=== PATIENT | male | born 1960 | race Caucasian/White ===

== ENCOUNTER 2016-12-24 20:47 | Inpatient (IN) | payer MEDICAID ==
[~2016-12-24] VITALS: Ht 170.2 cm; Wt 75.2 kg
[2016-12-24] MEDS ORDERED: ONDANSETRON 4 MG INJ IV STA (21:31)
[2016-12-24] MEDS ORDERED: FAMOTIDINE 20 MG TAB PO STA (21:31)
[2016-12-24] MEDS ORDERED: BELLADONNA/PHENOBARBITAL TAB PO STA (21:31)
[2016-12-24] MEDS ORDERED: KETOROLAC 15 MG INJ IV STA (21:31)
[2016-12-24] MEDS ORDERED: LIDOCAINE/MYLANTA 40 ML BTL PO STA (21:31)
[2016-12-24 21:54] LABS: BASOPHILS % 0.4 % (0.0-2.0); EOSINOPHILS # 0.3 10^3/ul (0.0-0.5); EOSINOPHILS % 3.4 % (0.0-7.0); HEMATOCRIT 43.8 % (42.0-52.0); HEMOGLOBIN 14.1 g/dl (14.0-18.0); LYMPHOCYTES # 2.5 10^3/ul (0.8-2.9); LYMPHOCYTES % 32.3 % (15.0-51.0); MEAN CORPUSCULAR HEMOGLOBIN 26.7 pg (29.0-33.0); MEAN CORPUSCULAR HGB CONC 32.2 g/dl (32.0-37.0); MEAN CORPUSCULAR VOLUME 82.8 fl (82.0-101.0); MEAN PLATELET VOLUME 10.2 fl (7.4-10.4); MONOCYTE # 0.6 10^3/ul (0.3-0.9); MONOCYTES % 7.5 % (0.0-11.0); NEUTROPHIL # 4.3 10^3/ul (1.6-7.5); NEUTROPHILS % 56.1 % (39.0-77.0); PLATELET COUNT 165 10^3/UL (140-415); RED BLOOD COUNT 5.29 10^6/ul (4.70-6.10); RED CELL DISTRIBUTION WIDTH 15.5 % (11.5-14.5); WHITE BLOOD COUNT 7.6 10^3/ul (4.8-10.8)
[2016-12-24] MEDS ORDERED: ASPIRIN 81 MG TAB PO ONE (22:00)
[2016-12-24] MEDS ORDERED: NITROGLYCERIN (SL) 0.4 MG TAB SL ONE (22:00)
[2016-12-24] MEDS ORDERED: ENALAPRILAT 1.25 MG INJ IV ONE (22:00)
[2016-12-24 22:18] LABS: ALANINE AMINOTRANSFERASE 28 IU/L (13-69); ALBUMIN 4.3 g/dl (3.3-4.9); ALBUMIN/GLOBULIN RATIO 1.26; ALKALINE PHOSPHATASE 107 IU/L (42-121); ANION GAP 14 (8-16); ASPARTATE AMINO TRANSFERASE 20 IU/L (15-46); BILIRUBIN,INDIRECT 0.3 mg/dl (0-1.1); BILIRUBIN,TOTAL 0.3 mg/dl (0.2-1.3); BLOOD UREA NITROGEN 16 mg/dl (7-20); CALCIUM 9.4 mg/dl (8.4-10.2); CARBON DIOXIDE 29 mmol/L (21-31); CHLORIDE 102 mmol/L (97-110); GLUCOSE 93 mg/dl (70-220); SODIUM 142 mmol/L (135-144); TOTAL PROTEIN 7.7 g/dl (6.1-8.1)
--- NOTE | 2016-12-24 22:23 | ERD ---
ER Documentation Chief Complaint Chief Complaint biba for chest pressure since this am was given nitro x1 on the field HPI 56-year-old man brought in by EMS from home for complaints of pressure-like substernal left-sided chest pain beginning today, constant, nonradiating, but exertional. He also has associated intermittent shortness of breath. He is a smoker and has a long history of hypertension but does not use antihypertensive medications. Patient denies loss of consciousness, no fevers or chills, no vomiting or diarrhea. Patient also describes epigastric pain and burning, but this is separate from his chest discomfort. Patient has no history of coronary angiography. ROS All systems reviewed and are negative except as per history of present illness. PMhx/Soc Hypertension, tobacco smoker Medical and Surgical Hx: pt denies Surgical Hx History of Surgery: No Anesthesia Reaction: No Hx Neurological Disorder: No Hx Respiratory Disorders: No Hx Cardiac Disorders: Yes (htn ) Hx Psychiatric Problems: No Hx Miscellaneous Medical Probl: No Hx Alcohol Use: Yes Hx Substance Use: No Hx Tobacco Use: Yes Smoking Status: Current every day smoker FmHx Family History: No diabetes Physical Exam Vitals Vital Signs Date Time Temp Pulse Resp B/P Pulse Ox O2 Delivery O2 Flow Rate FiO2 12/24/16 20:53 98.5 75 18 186/97 96 Physical Exam GENERAL: Well-developed, well-nourished, well-hydrated, in no apparent distress , looks nontoxic in appearance HEENT: Moist mucous membranes, pink conjunctiva, no cervical spine tenderness or step-off deformities, no goiter, no jaundice or icterus, extraocular movements intact without pain. No submandibular induration, and no pharyngeal erythema NEURO: Alert and oriented 3, cranial nerves II through XII intact bilaterally, pupils equal round reactive to light, no focal deficits or facial asymmetry, sensation intact distally Strength 5/5 in upper and lower extremities bilaterally CARDIAC: Regular rate and rhythm, no murmurs rubs or gallops LUNGS: Clear bilaterally no wheezing crackles or stridor ABDOMEN: Soft nontender, no guarding, no rigidity, no rebound, no psoas sign no obturator sign. Normoactive bowel sounds SKIN: Warm and dry to touch, no abrasions, contusions, or hematomas, no lacerations, no ecchymosis, no target lesions, and without ulcers EXTREMITIES: No clubbing cyanosis or edema, calves are bilaterally symmetrical, no Homans sign, no popliteal cord sign. Distal pulses equal and bilateral PSYCH: Normal affect without agitation or irritability Result Diagram: 12/24/162130 Results 24 hrs Laboratory Tests Test 12/24/16 21:31 White Blood Count 7.610^3/ul Red Blood Count 5.2910^6/ul Hemoglobin 14.1g/dl Hematocrit 43.8% Mean Corpuscular Volume 82.8fl Mean Corpuscular Hemoglobin 26.7pg Mean Corpuscular Hemoglobin Concent 32.2g/dl Red Cell Distribution Width 15.5% Platelet Count 50223^3/UL Mean Platelet Volume 10.2fl Neutrophils % 56.1% Lymphocytes % 32.3% Monocytes % 7.5% Eosinophils % 3.4% Basophils % 0.4% Nucleated Red Blood Cells % 0.0/100WBC Neutrophils # 4.310^3/ul Lymphocytes # 2.510^3/ul Monocytes # 0.610^3/ul Eosinophils # 0.310^3/ul Basophils # 0.010^3/ul Nucleated Red Blood Cells # 0.010^3/ul Current Medications Medications (Trade) Dose Ordered Sig/Олег Route PRN Reason Start Time Stop Time Status Last Admin Dose Admin Ondansetron HCl (Zofran Inj) 4 mg ONCE STAT IV 12/24/16 21:31 12/24/16 21:32 DC 12/24/16 21:39 Famotidine (Pepcid) 40 mg ONCE STAT PO 12/24/16 21:31 12/24/16 21:32 DC 12/24/16 21:36 Miscellaneous Medication (Gi Cocktail (2)) 40 ml ONCE STAT PO 12/24/16 21:31 12/24/16 21:32 DC 12/24/16 21:35 Belladonna/ Phenobarbital () 2 tab ONCE STAT PO 12/24/16 21:31 12/24/16 21:32 DC 12/24/16 21:35 Ketorolac Tromethamine (Toradol) 15 mg ONCE STAT IV 12/24/16 21:31 12/24/16 21:32 DC 12/24/16 21:35 Enalaprilat (Vasotec Iv) 1.25 mg ONCE ONCE IV 12/24/16 22:00 12/24/16 22:01 DC 12/24/16 22:06 Nitroglycerin (Nitroglycerin (Sl Tab) 0.4 Mg) 1 tab ONCE ONCE SL 12/24/16 22:00 12/24/16 22:01 DC 12/24/16 22:06 Aspirin (Aspirin) 324 mg ONCE ONCE PO 12/24/16 22:00 12/24/16 22:01 DC 12/24/16 22:06 Procedures/MDM IV line was established 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 Patient was afebrile EKG performed, read by me: 69 bpm, normal sinus rhythm, normal axis, no acute ST segment changes, narrow QRS complex, with good R-wave progression in precordial leads. One AP view of the chest performed, read by me reveals no acute infiltrates, normal mediastinum, sharp costophrenic and cardiac borders, no air under the diaphragm. Otherwise unremarkable chest x-ray. CBC and electrolytes are normal, liver function tests were normal, troponin was negative. I administered aspirin 324 mg p.o. for cardioprotective measures, nitro hypertension. Patient also receives a GI cocktail 50 cc p.o., famotidine 40 mg p.o. and Toradol 15 mg IV 1. Patient has concerning past medical history and uncontrolled hypertension. He suffered chest pain today and will be admitted to telemetry setting for continued medical management cardiology consultation. Departure Diagnosis: Primary Impression: Chest pain Chest pain type: unspecified Qualified Code: R07.9 - Chest pain, unspecified type Additional Impression: Hypertension Hypertension type: essential hypertension Qualified Code: I10 - Essential hypertension Condition: LACI Swenson MD Dec 24, 2016 22:23
[2016-12-24 22:35] LABS: POTASSIUM 2.9 mmol/L (3.5-5.1); TROPONIN-I < 0.012 ng/ml (0.00-0.12)
--- NOTE | 2016-12-24 22:51 | RADRPT ---
PROCEDURE: XR Chest. CLINICAL INDICATION: Abdominal pain. TECHNIQUE: Single frontal view of the chest was obtained in apical lordotic position. COMPARISON: None. FINDINGS: Heart size is at upper limits of normal. The lungs are clear. No signs of pleural fluid or pneumotho rax are seen. The osseous structures and soft tissues are unremarkable. IMPRESSION: No evidence for active cardiopulmonary disease. RPTAT: [facility] Physician Aston Date Time Electronically viewed and signed by Physician Aston on 12/24/2016 22:51 RS/
[2016-12-24] MEDS ORDERED: POTASSIUM CHLORIDE (SR) 20 MEQ TAB PO STA (22:55)
[2016-12-24] MEDS ORDERED: NITROGLYCERIN (SL) 0.4 MG TAB SL PRN (23:00)
[2016-12-24] MEDS: METOPROLOL 25 MG TAB PO SCH (23:00)
[2016-12-24] MEDS ORDERED: ONDANSETRON 4 MG INJ IV PRN (23:00)
[2016-12-24] MEDS ORDERED: ALBUTEROL/IPRATROPIUM (NEB) 3 ML AMP HHN PRN (23:00)
[2016-12-24] MEDS ORDERED: NACL 0.9% 3 ML SYG IV SCH (23:00)
[2016-12-24] MEDS ORDERED: ACETAMINOPHEN 325 MG TAB PO PRN (23:00)
[2016-12-24] MEDS ORDERED: morphine 2 MG INJ IV PRN (23:00)
[2016-12-25] VITALS (11 sets, daily range): BP systolic 139–154; BP diastolic 82–92; PULSE 62–72; RESP 16–22; Ht 170.2 cm; Wt 75.2 kg
[2016-12-25 00:27] LABS: CREATINE KINASE 108 IU/L (23-200)
[2016-12-25 01:08] LABS: CK-MB 0.77 ng/ml (0.0-2.4); TROPONIN-I < 0.012 ng/ml (0.00-0.12)
[2016-12-25] MEDS: POTASSIUM CHLORIDE 250 ML IVPB SCH ×2 (01:30→08:37)
[2016-12-25] MEDS ORDERED: POTASSIUM CHLORIDE (SR) 20 MEQ TAB PO SCH (03:00)
[2016-12-25] MEDS ORDERED: hydrALAzine 20 MG INJ IV PRN (06:00)
[2016-12-25 06:06] LABS: BASOPHILS % 0.6 % (0.0-2.0); EOSINOPHILS # 0.2 10^3/ul (0.0-0.5); EOSINOPHILS % 3.2 % (0.0-7.0); HEMOGLOBIN 13.6 g/dl (14.0-18.0); LYMPHOCYTES # 2.4 10^3/ul (0.8-2.9); MEAN CORPUSCULAR HEMOGLOBIN 27.6 pg (29.0-33.0); MEAN CORPUSCULAR HGB CONC 33.2 g/dl (32.0-37.0); MEAN CORPUSCULAR VOLUME 83.2 fl (82.0-101.0); MONOCYTE # 0.5 10^3/ul (0.3-0.9); MONOCYTES % 7.6 % (0.0-11.0); NEUTROPHILS % 55.3 % (39.0-77.0); PLATELET COUNT 157 10^3/UL (140-415); RED BLOOD COUNT 4.93 10^6/ul (4.70-6.10); RED CELL DISTRIBUTION WIDTH 15.1 % (11.5-14.5); WHITE BLOOD COUNT 7.2 10^3/ul (4.8-10.8)
[2016-12-25 06:27] LABS: CREATINE KINASE 88 IU/L (23-200)
[2016-12-25 06:34] LABS: ALBUMIN 3.8 g/dl (3.3-4.9); ALBUMIN/GLOBULIN RATIO 1.4; BILIRUBIN,INDIRECT 0.2 mg/dl (0-1.1); BILIRUBIN,TOTAL 0.2 mg/dl (0.2-1.3); CALCIUM 9.1 mg/dl (8.4-10.2); CREATININE 1.01 mg/dl (0.61-1.24); POTASSIUM 3.4 mmol/L (3.5-5.1); TOTAL PROTEIN 6.5 g/dl (6.1-8.1)
[2016-12-25 06:48] LABS: CK-MB 0.62 ng/ml (0.0-2.4); TROPONIN-I < 0.012 ng/ml (0.00-0.12)
[2016-12-25 07:36] LABS: THYROID STIMULATING HORMONE 3.51 MIU/L (0.465-4.680)
[2016-12-25] MEDS: ASPIRIN 81 MG TAB PO SCH (08:37)
[2016-12-25] MEDS: METOPROLOL 25 MG TAB PO SCH (08:38)
[2016-12-25] MEDS: ENOXAPARIN 40 MG/0.4 ML SYG SC SCH (08:40)
--- NOTE | 2016-12-25 09:08 | HP ---
Date/Time of Note Date/Time of Note DATE: 12/25/16 TIME: 09:04 Assessment/Plan VTE Prophylaxis VTE Prophylaxis Intervention: heparin Assessment/Plan Assessment/Plan 1. Chest pain, rule out ACS -Continue telemetry monitoring -Supplemental oxygen, aspirin, beta-ashley with as needed nitro morphine -2D echo and cardiology consult 2. Hypertension -Continue antihypertensives adjustment as needed 3. Hypokalemia -Replete HPI/ROS Admit Date/Time Admit Date/Time Dec 24, 2016 at 22:18 Hx of Present Illness This is a 57-year-old male with a history of hypertension who presented to the emergency department complaining of chest pain times few days. Pain is slightly left-sided with radiation of the left arm. When EMS arrived, he was given aspirin and nitroglycerin with resolution of his chest pain. When he presented to the ER, blood pressure was 186/97 with a heart rate of 75. Labs shows potassium of 2.9. EKG was normal sinus rhythm with a heart rate of 69 and a troponin so far negative 2. Chest x-ray was no acute findings. PMH/Family/Social Social History Smoking Status: Current every day smoker Exam/Review of Systems Vital Signs Vitals Vital Signs Date Time Temp Pulse Resp B/P Pulse Ox O2 Delivery O2 Flow Rate FiO2 12/25/16 08:31 65 12/25/16 06:39 98.0 16 146/92 12/24/16 20:53 96 Exam Constitutional: alert, oriented, well developed Head: atraumatic, normocephalic Eyes: EOMI, PERRL Respiratory: clear to auscultation, normal air movement Cardiovascular: nl pulses, regular rate and rhythm Gastrointestinal: non-tender, soft Extremities: normal pulses Labs Result Diagram: 12/25/16 0545 12/25/16 0545 Medications Medications Current Medications Ondansetron HCl (Zofran Inj) 4 mg Q6H PRN IV NAUSEA AND/OR VOMITING; Start at 23:00 Aspirin (Aspirin) 81 mg DAILY PO Last administered on 12/25/16t 08:37; Admin Dose 81 MG; Start 12/25/16 at 09:00 Nitroglycerin (Nitroglycerin (Sl Tab) 0.4 Mg) 1 tab Q5M PRN SL CHEST PAIN; Start 12/24/16 at 23:00 Acetaminophen (Tylenol Tab) 650 mg Q6H PRN PO PAIN LEVEL 1-3 OR FEVER; Start 12/24/16 at 23:00 Morphine Sulfate (morphine) 2 mg Q4H PRN IV pain Last administered on 03:51; Admin Dose 2 MG; Start 12/24/16 at 23:00 Enoxaparin Sodium (Lovenox) 40 mg DAILY SC Last administered on 12/25/16 08: 40; Admin Dose 40 MG; Start 12/25/16 at 09:00 Metoprolol Tartrate 25 mg 25 mg Q12 PO Last administered on 12/25/16 08:38; Admin Dose 25 MG; Start 12/24/16 at 23:00 Potassium Chloride (KCl 40 MEQ/250 ML NS) 250 ml @ 62.5 mls/hr Q4H IVPB Last administered on 12/25/16 08:37; Admin Dose 62.5 MLS/HR; Start 12/25/16 at 01: 30; Stop 12/25/16 at 09:29 Hydralazine HCl (Apresoline) 10 mg Q4H PRN IV SBP > 160; Start 12/25/16 at 06: 00 KOBE PHIPPS MD Dec 25, 2016 09:08
[2016-12-25] MEDS ORDERED: POTASSIUM CHLORIDE (SR) 20 MEQ TAB PO STA (10:51)
--- NOTE | 2016-12-25 11:08 | PN ---
Date/Time of Note Date/Time of Note DATE: 12/25/16 TIME: 11:05 Assessment/Plan VTE Prophylaxis VTE Prophylaxis Intervention: LMWH Assessment/Plan Chief Complaint/Hosp Course Assessment/Plan: 56-year-old male positive smoking history, presents with: 1. Chest pain -troponins are negative 3, 2D echocardiogram is pending. -Continue telemetry monitoring -Supplemental oxygen, aspirin, beta-ashley with as needed nitro morphine [id number] echo and cardiology consult recommendations 2. Hypertension-came in with hypertensive urgency, now improved -Continue antihypertensives adjustment as needed 3. Hypokalemia -Replete 4. Left arm numbness, will check head CT, otherwise patient has no other focal deficits. Problems: Subjective 24 Hr Interval Summary Free Text/Dictation Patient having some left hand numbness, but denies chest pain presently. Exam/Review of Systems Vital Signs Vitals Vital Signs Date Time Temp Pulse Resp B/P Pulse Ox O2 Delivery O2 Flow Rate FiO2 12/25/16 08:31 65 12/25/16 06:39 98.0 16 146/92 12/24/16 20:53 96 Exam Constitutional: alert, oriented, well developed Head: atraumatic, normocephalic Eyes: EOMI, PERRL Respiratory: clear to auscultation, normal air movement Cardiovascular: nl pulses, regular rate and rhythm Gastrointestinal: non-tender, soft Extremities: normal pulses Results Result Diagram: 12/25/16 0545 12/25/16 0545 Results 24 hrs Laboratory Tests Test 12/24/16 21:31 12/24/16 23:51 12/25/16 04:55 12/25/16 05:45 White Blood Count 7.6 7.2 Red Blood Count 5.29 4.93 Hemoglobin 14.1 13.6 L Hematocrit 43.8 41.0 L Mean Corpuscular Volume 82.8 83.2 Mean Corpuscular Hemoglobin 26.7 L 27.6 L Mean Corpuscular Hemoglobin Concent 32.2 33.2 Red Cell Distribution Width 15.5 H 15.1 H Platelet Count 165 157 Mean Platelet Volume 10.2 10.0 Neutrophils % 56.1 55.3 Lymphocytes % 32.3 33.0 Monocytes % 7.5 7.6 Eosinophils % 3.4 3.2 Basophils % 0.4 0.6 Nucleated Red Blood Cells % 0.0 0.0 Neutrophils # 4.3 4.0 Lymphocytes # 2.5 2.4 Monocytes # 0.6 0.5 Eosinophils # 0.3 0.2 Basophils # 0.0 0.0 Nucleated Red Blood Cells # 0.0 0.0 Sodium Level 142 145 H Potassium Level 2.9 *L 3.4 L Chloride Level 102 105 Carbon Dioxide Level 29 32 H Anion Gap 14 11 Blood Urea Nitrogen 16 18 Creatinine 0.80 1.01 Glucose Level 93 93 Calcium Level 9.4 9.1 Total Bilirubin 0.3 0.2 Direct Bilirubin 0.00 0.00 Indirect Bilirubin 0.3 0.2 Aspartate Amino Transf (AST/SGOT) 20 16 Alanine Aminotransferase (ALT/SGPT) 28 28 Alkaline Phosphatase 107 86 Troponin I < 0.012 < 0.012 < 0.012 Total Protein 7.7 6.5 # Albumin 4.3 3.8 Globulin 3.40 H 2.70 Albumin/Globulin Ratio 1.26 1.40 Lipase 73 Creatine Kinase 108 88 Creatine Kinase Index 0.7 0.7 Creatinine Kinase MB (Mass) 0.77 0.62 Hemoglobin A1c 5.7 Magnesium Level 2.0 Triglycerides Level 236 H Cholesterol Level 212 H LDL Cholesterol, Calculated 135 HDL Cholesterol 30 Cholesterol/HDL Ratio 7.0 Thyroid Stimulating Hormone (TSH) 3.510 Medications Medications Current Medications Ondansetron HCl (Zofran Inj) 4 mg Q6H PRN IV NAUSEA AND/OR VOMITING; Start at 23:00 Aspirin (Aspirin) 81 mg DAILY PO Last administered on 12/25/16 08:37; Admin Dose 81 MG; Start 12/25/16 at 09:00 Nitroglycerin (Nitroglycerin (Sl Tab) 0.4 Mg) 1 tab Q5M PRN SL CHEST PAIN; Start 12/24/16 at 23:00 Acetaminophen (Tylenol Tab) 650 mg Q6H PRN PO PAIN LEVEL 1-3 OR FEVER; Start 12/24/16 at 23:00 Morphine Sulfate (morphine) 2 mg Q4H PRN IV pain Last administered on 03:51; Admin Dose 2 MG; Start 12/24/16 at 23:00 Enoxaparin Sodium (Lovenox) 40 mg DAILY SC Last administered on 12/25/16 08: 40; Admin Dose 40 MG; Start 12/25/16 at 09:00 Metoprolol Tartrate (Lopressor) 25 mg Q12 PO Last administered on 12/25/16t 08 :38; Admin Dose 25 MG; Start 12/24/16 at 23:00 Hydralazine HCl (Apresoline) 10 mg Q4H PRN IV SBP > 160; Start 12/25/16 at 06: 00 Fenofibrate (Tricor) 48 mg DAILY PO ; Start 12/25/16 at 11:00; Status QASIM SCHULTZ Dec 25, 2016 11:08
--- NOTE | 2016-12-25 12:07 | RADRPT ---
PROCEDURE: CT Brain without contrast. CLINICAL INDICATION: Left arm numbness. TECHNIQUE: A CT of the brain was performed on multidetector high-resolution CT scanner utilizing a xial sections from the skull base through the vertex without contrast. The scan was reviewed in sof t tissue brain and high frequency resolution bone algorithm windows. Images were reviewed on a high -resolution PACS workstation. One or more the following does reduction techniques were utilized: Aut omated exposure control, adjustment of the mA/ or kV according to patient's size, or use of iterativ e reconstruction technique. The exam CTDI = 51.28 mGy and the DLP = 630.20 mGy-cm. COMPARISON: None available. FINDINGS: The ventricles and sulci are age-appropriate. There is no intracranial hemorrhage, mass effect or mi dline shift. No abnormal intra-axial or extra-axial fluid collections are seen. The smith/white kylee er differentiation is preserved. There are minimal scattered foci of hypoattenuation in the white matter, which are nonspecific in et iology but likely reflect chronic small vessel ischemic changes. There are minimal intracranial vas cular calcifications consistent with atherosclerosis. The visualized paranasal sinuses demonstrate o pacification of left frontoethmoidal recess and subtotal opacification of left sphenoid sinus and bi lateral ethmoid air cells with associated mucoid secretion/fluid level. The mastoid air cells are es sentially clear. IMPRESSION: 1. No acute intracranial hemorrhage, transcortical infarction or mass effect. If clinical concern p ersists consider brain MRI. 2. Minimal intracranial atherosclerosis and chronic small vessel ischemic changes. 3. Opacification of left frontoethmoidal recess and subtotal opacification of left sphenoid sinus a nd bilateral ethmoid air cells with associated mucoid secretion/fluid level, correlate for acute sin usitis. RPTAT: JJ .Fartun Sheriff MD, MD Date Time Electronically viewed and signed by .Fartun Sheriff MD, MD on 12/25/2016 12:07 .N/
[2016-12-25] MEDS: FENOFIBRATE 48 MG TAB PO SCH (12:21)
--- NOTE | 2016-12-25 17:01 | CONS ---
Date/Time of Note Date/Time of Note DATE: 12/25/16 TIME: 17:00 Assessment/Plan Assessment/Plan Chief Complaint/Hosp Course Assessment: Chest pain - ruled out for myocardial infarction, possibly due to severely elevated blood pressures Accelerated hypertension - blood pressures now improved Dyslipidemia Recommendations: -follow up transthoracic echocardiogram, recommend outpatient cardiac stress testing if echocardiogram normal -change metoprolol to carvedilol 6.25mg BID -continue aspirin 81mg daily -add atorvastatin 10mg daily, continue fenofibrate 48mg daily Problems: Consultation Date/Type/Reason Admit Date/Time Dec 24, 2016 at 22:18 Type of Consultation: Cardiology Reason for Consultation chest pain Hx of Present Illness The patient is a 56 year-old male who presented with chest pain. He describes a one day history of intermittent nonexertional chest pressure with radiation down the left arm. He reports elevated blood pressures at home with systolic pressures above 200. On presentation to the emergency department, his blood pressures was 186/97. EKG showed normal sinus rhythm without acute ischemic changes. Troponins have been negative x 3. 14 point review of systems negative other than per HPI. Past Medical History Medical History: hypertension Past Surgical History Past Surgical Hx: cholecystectomy Family History Significant Family History: no pertinent family hx Social History Alcohol Use: occasionally Smoking Status: Current every day smoker Drug Use: none Exam/Review of Systems Vital Signs Vitals Vital Signs Date Time Temp Pulse Resp B/P Pulse Ox O2 Delivery O2 Flow Rate FiO2 12/25/16 15:13 98.0 67 18 141/82 96 Exam Constitutional: alert, well developed Psych: nl mood/affect, no complaints Head: atraumatic, normocephalic Eyes: nl conjunctiva, nl lids ENMT: nl external ears & nose, nl nasal mucosa & septum Neck: non-tender, supple, No jvd Respiratory: clear to auscultation, normal air movement Cardiovascular: regular rate and rhythm Gastrointestinal: non-tender, soft Musculoskeletal: nl extremities to inspection Extremities: No clubbing, No cyanosis, No edema Neurological: nl mental status, nl speech Skin: nl turgor Results Result Diagram: 12/25/16 0545 12/25/16 0545 Results 24 hrs Laboratory Tests Test 12/24/16 21:31 12/24/16 23:51 12/25/16 04:55 12/25/16 05:45 White Blood Count 7.6 7.2 Red Blood Count 5.29 4.93 Hemoglobin 14.1 13.6 L Hematocrit 43.8 41.0 L Mean Corpuscular Volume 82.8 83.2 Mean Corpuscular Hemoglobin 26.7 L 27.6 L Mean Corpuscular Hemoglobin Concent 32.2 33.2 Red Cell Distribution Width 15.5 H 15.1 H Platelet Count 165 157 Mean Platelet Volume 10.2 10.0 Neutrophils % 56.1 55.3 Lymphocytes % 32.3 33.0 Monocytes % 7.5 7.6 Eosinophils % 3.4 3.2 Basophils % 0.4 0.6 Nucleated Red Blood Cells % 0.0 0.0 Neutrophils # 4.3 4.0 Lymphocytes # 2.5 2.4 Monocytes # 0.6 0.5 Eosinophils # 0.3 0.2 Basophils # 0.0 0.0 Nucleated Red Blood Cells # 0.0 0.0 Sodium Level 142 145 H Potassium Level 2.9 *L 3.4 L Chloride Level 102 105 Carbon Dioxide Level 29 32 H Anion Gap 14 11 Blood Urea Nitrogen 16 18 Creatinine 0.80 1.01 Glucose Level 93 93 Calcium Level 9.4 9.1 Total Bilirubin 0.3 0.2 Direct Bilirubin 0.00 0.00 Indirect Bilirubin 0.3 0.2 Aspartate Amino Transf (AST/SGOT) 20 16 Alanine Aminotransferase (ALT/SGPT) 28 28 Alkaline Phosphatase 107 86 Troponin I < 0.012 < 0.012 < 0.012 Total Protein 7.7 6.5 # Albumin 4.3 3.8 Globulin 3.40 H 2.70 Albumin/Globulin Ratio 1.26 1.40 Lipase 73 Creatine Kinase 108 88 Creatine Kinase Index 0.7 0.7 Creatinine Kinase MB (Mass) 0.77 0.62 Hemoglobin A1c 5.7 Magnesium Level 2.0 Triglycerides Level 236 H Cholesterol Level 212 H LDL Cholesterol, Calculated 135 HDL Cholesterol 30 Cholesterol/HDL Ratio 7.0 Thyroid Stimulating Hormone (TSH) 3.510 Medications Medications Current Medications Ondansetron HCl (Zofran Inj) 4 mg Q6H PRN IV NAUSEA AND/OR VOMITING; Start at 23:00 Aspirin (Aspirin) 81 mg DAILY PO Last administered on 12/25/16t 08:37; Admin Dose 81 MG; Start 12/25/16 at 09:00 Nitroglycerin (Nitroglycerin (Sl Tab) 0.4 Mg) 1 tab Q5M PRN SL CHEST PAIN; Start 12/24/16 at 23:00 Acetaminophen (Tylenol Tab) 650 mg Q6H PRN PO PAIN LEVEL 1-3 OR FEVER; Start 12/24/16 at 23:00 Morphine Sulfate (morphine) 2 mg Q4H PRN IV pain Last administered on 03:51; Admin Dose 2 MG; Start 12/24/16 at 23:00 Enoxaparin Sodium (Lovenox) 40 mg DAILY SC Last administered on 12/25/16 08: 40; Admin Dose 40 MG; Start 12/25/16 at 09:00 Metoprolol Tartrate (Lopressor) 25 mg Q12 PO Last administered on 12/25/16 08 :38; Admin Dose 25 MG; Start 12/24/16 at 23:00 Hydralazine HCl (Apresoline) 10 mg Q4H PRN IV SBP > 160; Start 12/25/16 at 06: 00 Fenofibrate (Tricor) 48 mg DAILY PO Last administered on 12/25/16 12:21; Admin Dose 48 MG; Start 12/25/16 at 12:00 MAXIMO PARK MD Dec 25, 2016 17:01
[2016-12-25] MEDS: ATORVASTATIN 10 MG TAB PO SCH (20:44)
[2016-12-26] VITALS (12 sets, daily range): BP systolic 134–154; BP diastolic 80–95; PULSE 61–69; RESP 17–20
--- NOTE | 2016-12-26 00:08 | RADRPT ---
Echocardiogram Report Patient Name: VIKAS DELATORRE Gender: Male Date: 1960 Study Date: 25-Dec-2016 [employer] Concrete: [facility] Location: [address] Ref. Physician: QASIM AUSTIN Quality: Adequate Procedures: Transthoracic echocardiogram with complete 2D, M-Mode, and doppler examination. Indications: Chest Pain. 2D/M Mode Doppler Measurement Value Normal Ranges Measurement Value Normal Ranges LVIDd 2D 5.0 3.5 - 5.6 cm AV Peak Kyler 1.1 m/sec LVIDs 2D 4.0 2.1 - 4.1 cm AV Peak PG 5.0 mmHg FS 2D 21.0 % AI Peak PG 42.0 mmHg LVPWd 2D 1.3 0.6 - 1.1 cm AI Peak Kyler 3.2 m/sec IVSd 2D 1.3 0.6 - 1.1 cm AI PHT 536.0 msec IVS/LVPW 2D 1.0 LVOT Peak Kyler 1.0 m/sec AoR Diam 2D 2.8 2.0 - 3.7 cm LVOT Peak PG 4.0 mmHg LA/Ao 2D 2 0 - 1 MV E Peak Kyler 0.7 m/sec EDV 2D 126.0 cm3 MV A Peak Kyler 0.7 m/sec ESV 2D 62.1 cm3 MV E/A 0.9 LA Dimen 2D 4.3 2.3 - 4.0 cm MV Decel Time 165 msec MV E/A 0.9 TR Peak Kyler 2.5 m/sec TR Peak PG 25.0 mmHg RVSP 28.0 mmHg Findings Left Ventricle: Normal left ventricular cavity size. Mild concentric left ventricular hypertrophy. Mild global left ventricular systolic dysfunction. Ejection fraction is visually estimated at 4550 %. Tissue Doppler/Mitral Doppler indices are consistent with pseudonormalization with mildly elevated left atrial pressure (Stage II diastolic dysfunction). These segments of the LV are hypokinetic inferolateral base and inferolateral mid segment. Right Ventricle: Normal right ventricular size. Normal right ventricular systolic function. Left Atrium: There is mild enlargement of left atrium. Right Atrium: The right atrium is normal in size. Mitral Valve: Mild mitral leaflet calcification. Mild mitral annular calcification. Mild mitral valve regurgitation. Aortic Valve: Aortic cusps appear mildly calcified. Mild to moderate aortic valve regurgitation. Tricuspid Valve: Normal appearance of the tricuspid valve. Estimated peak PA systolic pressure 28 mmHg. There is mild tricuspid regurgitation. Pulmonic Valve: Pulmonic valve not well visualized. There is trace pulmonic regurgitation. Pericardium: Normal pericardium with no significant pericardial effusion. Aorta: Normal aortic root. IVC: Normal size and normal respiratory collapse consistent with normal right atrial pressure. Conclusions 1.The left ventricle is normal in size with mildly reduced systolic function. 2.Estimated left ventricular ejection fraction of 45-50%. There is mild inferolateral hypokinesis. 3.Mild concentric left ventricular hypertrophy. Grade 2 diastolic dysfunction. 4.Aortic valve sclerosis without stenosis. Mild to moderate aortic regurgitation. 5.Mild left atrial enlargement. Electronically Signed By: Mau Blake 26-Dec-2016 00:07:58 -0700 Patient Name: VIKAS DELATORRE Study Date: 25-Dec-2016 [id number]
[2016-12-26 07:24] LABS: BASOPHILS % 0.3 % (0.0-2.0); EOSINOPHILS # 0.2 10^3/ul (0.0-0.5); EOSINOPHILS % 2.7 % (0.0-7.0); HEMATOCRIT 41.8 % (42.0-52.0); HEMOGLOBIN 13.3 g/dl (14.0-18.0); LYMPHOCYTES # 2.2 10^3/ul (0.8-2.9); LYMPHOCYTES % 34.2 % (15.0-51.0); MEAN CORPUSCULAR HGB CONC 31.8 g/dl (32.0-37.0); MEAN PLATELET VOLUME 10.3 fl (7.4-10.4); MONOCYTE # 0.4 10^3/ul (0.3-0.9); MONOCYTES % 6.5 % (0.0-11.0); NEUTROPHIL # 3.5 10^3/ul (1.6-7.5); NEUTROPHILS % 56.1 % (39.0-77.0); PLATELET COUNT 156 10^3/UL (140-415); RED BLOOD COUNT 4.92 10^6/ul (4.70-6.10); RED CELL DISTRIBUTION WIDTH 15.1 % (11.5-14.5); WHITE BLOOD COUNT 6.3 10^3/ul (4.8-10.8)
[2016-12-26 07:42] LABS: CALCIUM 9.2 mg/dl (8.4-10.2); CREATININE 0.86 mg/dl (0.61-1.24); POTASSIUM 3.9 mmol/L (3.5-5.1)
[2016-12-26] MEDS: ASPIRIN 81 MG TAB PO SCH (09:41)
[2016-12-26] MEDS: FENOFIBRATE 48 MG TAB PO SCH (09:42)
[2016-12-26] MEDS: ENOXAPARIN 40 MG/0.4 ML SYG SC SCH (09:56)
[2016-12-26] MEDS ORDERED: INFLUENZA VIRUS VACCINE 0.5 ML SYG IM* ONE (10:00)
--- NOTE | 2016-12-26 10:17 | PN ---
Date/Time of Note Date/Time of Note DATE: 12/26/16 TIME: 10:15 Assessment/Plan VTE Prophylaxis VTE Prophylaxis Intervention: LMWH Lines/Catheters IV Catheter Type (from Nrs): Peripheral IV Assessment/Plan Chief Complaint/Hosp Course Assessment/Plan: 56-year-old male positive smoking history, presents with: 1. Chest pain -troponins are negative 3 -Continue telemetry monitoring -Supplemental oxygen, aspirin, beta-ashley with as needed nitro morphine -May get cardiac stress test depending on echocardiogram results per cardiology consult recommendations 2. Hypertension-came in with hypertensive urgency, now improved -Continue antihypertensives adjustment as needed 3. Hypokalemia -Replete 4. Left arm numbness, will check head CT, otherwise patient has no other focal deficits. Problems: Subjective 24 Hr Interval Summary Free Text/Dictation No acute events overnight, seen by cardiology team yesterday. Echocardiogram performed as well. Exam/Review of Systems Vital Signs Vitals Vital Signs Date Time Temp Pulse Resp B/P Pulse Ox O2 Delivery O2 Flow Rate FiO2 12/26/16 08:41 68 12/26/16 07:53 98.7 17 154/89 96 Intake and Output 12/25/16 12/25/16 12/26/16 14:59 22:59 06:59 Intake Total 300 ml 250 ml Balance 300 ml 250 ml Exam Constitutional: alert, oriented, well developed Head: atraumatic, normocephalic Eyes: EOMI, PERRL Respiratory: clear to auscultation, normal air movement Cardiovascular: nl pulses, regular rate and rhythm Gastrointestinal: non-tender, soft Extremities: normal pulses Results Result Diagram: 12/26/16 0627 12/26/16 0634 Results 24 hrs Laboratory Tests Test 12/26/16 06:27 12/26/16 06:34 White Blood Count 6.3 Red Blood Count 4.92 Hemoglobin 13.3 L Hematocrit 41.8 L Mean Corpuscular Volume 85.0 Mean Corpuscular Hemoglobin 27.0 L Mean Corpuscular Hemoglobin Concent 31.8 L Red Cell Distribution Width 15.1 H Platelet Count 156 Mean Platelet Volume 10.3 Neutrophils % 56.1 Lymphocytes % 34.2 Monocytes % 6.5 Eosinophils % 2.7 Basophils % 0.3 Nucleated Red Blood Cells % 0.0 Neutrophils # 3.5 Lymphocytes # 2.2 Monocytes # 0.4 Eosinophils # 0.2 Basophils # 0.0 Nucleated Red Blood Cells # 0.0 Sodium Level 146 H Potassium Level 3.9 Chloride Level 108 Carbon Dioxide Level 30 Anion Gap 12 Blood Urea Nitrogen 20 Creatinine 0.86 Glucose Level 106 Calcium Level 9.2 Medications Medications Current Medications Ondansetron HCl (Zofran Inj) 4 mg Q6H PRN IV NAUSEA AND/OR VOMITING; Start at 23:00 Aspirin (Aspirin) 81 mg DAILY PO Last administered on 12/26/16 09:41; Admin Dose 81 MG; Start 12/25/16 at 09:00 Nitroglycerin (Nitroglycerin (Sl Tab) 0.4 Mg) 1 tab Q5M PRN SL CHEST PAIN; Start 12/24/16 at 23:00 Acetaminophen (Tylenol Tab) 650 mg Q6H PRN PO PAIN LEVEL 1-3 OR FEVER; Start 12/24/16 at 23:00 Morphine Sulfate (morphine) 2 mg Q4H PRN IV pain Last administered on 03:51; Admin Dose 2 MG; Start 12/24/16 at 23:00 Enoxaparin Sodium (Lovenox) 40 mg DAILY SC Last administered on 12/26/16 09: 56; Admin Dose 40 MG; Start 12/25/16 at 09:00 Hydralazine HCl (Apresoline) 10 mg Q4H PRN IV SBP > 160; Start 12/25/16 at 06: 00 Fenofibrate (Tricor) 48 mg DAILY PO Last administered on 12/26/16 09:42; Admin Dose 48 MG; Start 12/25/16 at 12:00 Atorvastatin Calcium (Lipitor) 10 mg HS PO Last administered on 12/25/16 20: 44; Admin Dose 10 MG; Start 12/25/16 at 21:00 Carvedilol (Coreg) 6.25 mg BID PO Last administered on 12/26/16 09:42; Admin Dose 6.25 MG; Start 12/25/16 at 21:00 Procedures Procedures 2D ECHO: Conclusions 1. The left ventricle is normal in size with mildly reduced systolic function. 2. Estimated left ventricular ejection fraction of 45-50%. There is mild inferolateral hypokinesis. 3. Mild concentric left ventricular hypertrophy. Grade 2 diastolic dysfunction. 4. Aortic valve sclerosis without stenosis. Mild to moderate aortic regurgitation. 5. Mild left atrial enlargement. QASIM AUSTIN. Dec 26, 2016 10:17
--- NOTE | 2016-12-26 20:00 | CONS ---
Date/Time of Note Date/Time of Note DATE: 12/26/16 TIME: 19:55 Assessment/Plan Assessment/Plan Chief Complaint/Hosp Course Assessment: Chest pain - ruled out for myocardial infarction Cardiomyopathy, LVEF 45-50% - probably ischemic Accelerated hypertension - blood pressures now improved Dyslipidemia Recommendations: -echocardiogram showed LVEF 45-50% with mild inferolateral hypokinesis, mild LVH , grade 2 diastolic dysfunction -coronary angiography tomorrow -add lisinopril 5mg daily -continue carvedilol 6.25mg BID -continue aspirin 81mg daily -continue atorvastatin 10mg and fenofibrate 48mg daily Problems: Consultation Date/Type/Reason Admit Date/Time Dec 24, 2016 at 22:18 Initial Consult Date Type of Consultation: Cardiology 24 HR Interval Summary Free Text/Dictation Blood pressures and chest pain improved. Echocardiogram abnormal. Detailed Summary Additional Comments 14 point review of systems without changes. Exam/Review of Systems Vital Signs Vitals Vital Signs Date Time Temp Pulse Resp B/P Pulse Ox O2 Delivery O2 Flow Rate FiO2 12/26/16 19:49 98.4 60 20 145/86 96 Intake and Output 12/25/16 12/25/16 12/26/16 15:00 23:00 07:00 Intake Total 300 ml 250 ml Balance 300 ml 250 ml Exam Constitutional: alert, well developed Psych: nl mood/affect, no complaints Head: atraumatic, normocephalic Eyes: nl conjunctiva, nl lids ENMT: nl external ears & nose, nl nasal mucosa & septum Neck: non-tender, supple, No jvd Respiratory: clear to auscultation, normal air movement Cardiovascular: regular rate and rhythm Gastrointestinal: non-tender, soft Musculoskeletal: nl extremities to inspection Extremities: No clubbing, No cyanosis, No edema Neurological: nl mental status, nl speech Skin: nl turgor Results Result Diagram: 12/26/16 0627 12/26/16 0634 Results 24 hrs Laboratory Tests Test 12/26/16 06:27 12/26/16 06:34 White Blood Count 6.3 Red Blood Count 4.92 Hemoglobin 13.3 L Hematocrit 41.8 L Mean Corpuscular Volume 85.0 Mean Corpuscular Hemoglobin 27.0 L Mean Corpuscular Hemoglobin Concent 31.8 L Red Cell Distribution Width 15.1 H Platelet Count 156 Mean Platelet Volume 10.3 Neutrophils % 56.1 Lymphocytes % 34.2 Monocytes % 6.5 Eosinophils % 2.7 Basophils % 0.3 Nucleated Red Blood Cells % 0.0 Neutrophils # 3.5 Lymphocytes # 2.2 Monocytes # 0.4 Eosinophils # 0.2 Basophils # 0.0 Nucleated Red Blood Cells # 0.0 Sodium Level 146 H Potassium Level 3.9 Chloride Level 108 Carbon Dioxide Level 30 Anion Gap 12 Blood Urea Nitrogen 20 Creatinine 0.86 Glucose Level 106 Calcium Level 9.2 Medications Medications Current Medications Ondansetron HCl (Zofran Inj) 4 mg Q6H PRN IV NAUSEA AND/OR VOMITING; Start at 23:00 Aspirin (Aspirin) 81 mg DAILY PO Last administered on 12/26/16 09:41; Admin Dose 81 MG; Start 12/25/16 at 09:00 Nitroglycerin (Nitroglycerin (Sl Tab) 0.4 Mg) 1 tab Q5M PRN SL CHEST PAIN; Start 12/24/16 at 23:00 Acetaminophen (Tylenol Tab) 650 mg Q6H PRN PO PAIN LEVEL 1-3 OR FEVER; Start 12/24/16 at 23:00 Morphine Sulfate (morphine) 2 mg Q4H PRN IV pain Last administered on 03:51; Admin Dose 2 MG; Start 12/24/16 at 23:00 Enoxaparin Sodium (Lovenox) 40 mg DAILY SC Last administered on 12/26/16 09: 56; Admin Dose 40 MG; Start 12/25/16 at 09:00 Hydralazine HCl (Apresoline) 10 mg Q4H PRN IV SBP > 160; Start 12/25/16 at 06: 00 Fenofibrate (Tricor) 48 mg DAILY PO Last administered on 12/26/16 09:42; Admin Dose 48 MG; Start 12/25/16 at 12:00 Atorvastatin Calcium (Lipitor) 10 mg HS PO Last administered on 12/25/16 20: 44; Admin Dose 10 MG; Start 12/25/16 at 21:00 Carvedilol (Coreg) 6.25 mg BID PO Last administered on 12/26/16 09:42; Admin Dose 6.25 MG; Start 12/25/16 at 21:00 MAXIMO PARK MD Dec 26, 2016 20:00
[2016-12-26] MEDS: ATORVASTATIN 10 MG TAB PO SCH (20:51)
[2016-12-27] VITALS (29 sets, daily range): BP systolic 117–150; BP diastolic 76–91; PULSE 60–76; RESP 11–31
[2016-12-27] MEDS: SOD CHLORIDE 0.9% 1,000 ML IV SCH ×3 (00:03→17:23)
[2016-12-27] MEDS ORDERED: LIDOCAINE 1% (MDV) 20 ML INJ ONE (07:28)
[2016-12-27] MEDS ORDERED: IODIXANOL LOCM 100 ML BTL ONE (07:28)
[2016-12-27] MEDS ORDERED: HEPARIN 1000 UNITS/ML 10 ML INJ ONE (07:28)
[2016-12-27] MEDS ORDERED: MIDAZOLAM 1 MG/ML 2 ML INJ ONE (07:29)
[2016-12-27] MEDS ORDERED: FENTAnyl 50 MCG/ML VIAL ONE (07:29)
[2016-12-27] MEDS ORDERED: NITROGLYCERIN (IC) 100 MCG/ML INJ ONE (07:29)
[2016-12-27] MEDS ORDERED: VERAPAMIL 5 MG INJ ONE (07:29)
[2016-12-27 08:24] LABS: BASOPHILS % 0.4 % (0.0-2.0); EOSINOPHILS # 0.2 10^3/ul (0.0-0.5); EOSINOPHILS % 2.4 % (0.0-7.0); HEMATOCRIT 39.3 % (42.0-52.0); HEMOGLOBIN 12.8 g/dl (14.0-18.0); LYMPHOCYTES # 2.1 10^3/ul (0.8-2.9); LYMPHOCYTES % 31.3 % (15.0-51.0); MEAN CORPUSCULAR HEMOGLOBIN 27.6 pg (29.0-33.0); MEAN CORPUSCULAR HGB CONC 32.6 g/dl (32.0-37.0); MEAN CORPUSCULAR VOLUME 84.7 fl (82.0-101.0); MEAN PLATELET VOLUME 10.4 fl (7.4-10.4); MONOCYTE # 0.4 10^3/ul (0.3-0.9); MONOCYTES % 6.1 % (0.0-11.0); NEUTROPHILS % 59.5 % (39.0-77.0); PLATELET COUNT 142 10^3/UL (140-415); RED BLOOD COUNT 4.64 10^6/ul (4.70-6.10); RED CELL DISTRIBUTION WIDTH 15.1 % (11.5-14.5); WHITE BLOOD COUNT 6.8 10^3/ul (4.8-10.8)
--- NOTE | 2016-12-27 08:27 | OPR ---
Date/Time of Note Date/Time of Note DATE: 12/27/16 TIME: 08:21 Operative Report Procedure Date: Dec 27, 2016 Preoperative Diagnosis unstable angina, cardiomyopathy Postoperative Diagnosis same Surgeon see signature line Land Economist none Anesthesia Type: moderate sedation Estimated Blood Loss: minimal Transfusion none Specimen none Grafts/Implants none Complications none Procedure Description Procedure Date: 12/27/2016 Test Preparer/surgeon:Mark Dumont MD. Procedures Performed: 1)Left heart catheterization with selective left and right coronary angiography. 2)Left ventricle angiography Pre-operative Diagnosis:unstable angina, cardiomyopathy Post-operative Diagnosis:same Indications: Description of Procedure: After informed consent, the patient was brought to the cardiac catheterization lab. The procedure site was prepped and draped in usual manner. The patient was premedicated with versed 1 mg and fentanyl 50 mcg.2 mL lidocaine was injected into the right wrist. Next using the posterior wall technique, the 6/ 5 cameroonian sheath was inserted into the right radial artery. Next using the JL3.5 and Froy catheters, selective angiography of the left and right coronary arteries were obtained. The pigtail was then advanced into the ventricle and hemodynamics obtained. Left ventricle angiography was obtained. Next all equipment was removed and hemostasis was obtained by TR band. Findings: Anatomy/Hemodynamics: Left main:normal LAD:ectatic, 20% plaquing throughout, very distal vessel at apex 60% Diagonal:mid 40% Circumflex:ectatic, 20% plaquing Obtuse marginal:20% plaquing. One small subbranch (<1mm) with 70% disease) RCA:ectatic, 20% plaquing PDA: very distal vessel with 70-80% disease (1mm vessel) PLV: mild plaquing LV angiography: EF 50%, mild mid inferior hypokinesis LV-Ao: no gradient LVEDP:5 mmHg Contrast used:90 mL Fluoroscopy time: 6.3 min Estimated blood loss<10 mL. Specimen: none Grafts/implants: none Complications: none Assessment: Unstable angina CAD with small vessel disease to be treated medically. HTN urgency: likley main cause of his angina. Medical management Tobacco use: counseled on cessation Plan: -medical management with ASA, statin, BP meds -tobacco cessation MARK DUMONT Dec 27, 2016 08:27
[2016-12-27] MEDS ORDERED: morphine 2 MG INJ IV PRN (08:30)
[2016-12-27] MEDS ORDERED: ONDANSETRON 4 MG INJ IV PRN (08:30)
[2016-12-27 08:40] LABS: CALCIUM 8.4 mg/dl (8.4-10.2); CREATININE 0.77 mg/dl (0.61-1.24); POTASSIUM 3.8 mmol/L (3.5-5.1)
[2016-12-27] MEDS: FENOFIBRATE 48 MG TAB PO SCH ×2 (09:00→11:54)
[2016-12-27] MEDS: ENOXAPARIN 40 MG/0.4 ML SYG SC SCH ×2 (09:00→11:55)
[2016-12-27] MEDS: LISINOPRIL 5 MG TAB PO SCH ×2 (09:00→11:56)
[2016-12-27] MEDS: ASPIRIN 81 MG TAB PO SCH ×2 (09:00→11:54)
--- NOTE | 2016-12-27 10:38 | PN ---
Date/Time of Note Date/Time of Note DATE: 12/27/16 TIME: 10:36 Assessment/Plan VTE Prophylaxis VTE Prophylaxis Intervention: LMWH Lines/Catheters IV Catheter Type (from Nrs): Peripheral IV Assessment/Plan Chief Complaint/Hosp Course Assessment/Plan: 56-year-old male positive smoking history, presents with: 1. Chest pain -troponins are negative 3 -Continue telemetry monitoring -Supplemental oxygen, aspirin, beta-ashley with as needed nitro morphine -Follow-up results from heart catheterization. 2. Hypertension-came in with hypertensive urgency, now improved -Continue antihypertensives adjustment as needed 3. Hypokalemia -Repleted - monitor 4. Left arm numbness-resolving, monitor for now Problems: Subjective 24 Hr Interval Summary Free Text/Dictation No acute events overnight. Patient off the floor at heart catheterization today Exam/Review of Systems Vital Signs Vitals Vital Signs Date Time Temp Pulse Resp B/P Pulse Ox O2 Delivery O2 Flow Rate FiO2 12/27/16 10:28 62 15 136/83 97 Room Air 12/27/16 08:33 98.0 Intake and Output 12/26/16 12/26/16 12/27/16 15:00 23:00 07:00 Intake Total 1200 ml 120 ml Balance 1200 ml 120 ml Exam Physical exam: Unable to be performed today because patient is off the floor at procedure Results Result Diagram: 12/27/16 0713 12/27/16 0713 Results 24 hrs Laboratory Tests Test 12/27/16 07:13 White Blood Count 6.8 Red Blood Count 4.64 L Hemoglobin 12.8 L Hematocrit 39.3 L Mean Corpuscular Volume 84.7 Mean Corpuscular Hemoglobin 27.6 L Mean Corpuscular Hemoglobin Concent 32.6 Red Cell Distribution Width 15.1 H Platelet Count 142 Mean Platelet Volume 10.4 Neutrophils % 59.5 Lymphocytes % 31.3 Monocytes % 6.1 Eosinophils % 2.4 Basophils % 0.4 Nucleated Red Blood Cells % 0.0 Neutrophils # 4.0 Lymphocytes # 2.1 Monocytes # 0.4 Eosinophils # 0.2 Basophils # 0.0 Nucleated Red Blood Cells # 0.0 Sodium Level 144 Potassium Level 3.8 Chloride Level 111 H Carbon Dioxide Level 30 Anion Gap 7 L Blood Urea Nitrogen 17 Creatinine 0.77 Glucose Level 96 Calcium Level 8.4 Medications Medications Current Medications Aspirin (Aspirin) 81 mg DAILY PO Last administered on 12/26/16 09:41; Admin Dose 81 MG; Start 12/25/16 at 09:00 Nitroglycerin (Nitroglycerin (Sl Tab) 0.4 Mg) 1 tab Q5M PRN SL CHEST PAIN; Start 12/24/16 at 23:00 Acetaminophen (Tylenol Tab) 650 mg Q6H PRN PO PAIN LEVEL 1-3 OR FEVER; Start 12/24/16 at 23:00 Enoxaparin Sodium (Lovenox) 40 mg DAILY SC Last administered on 12/26/16 09: 56; Admin Dose 40 MG; Start 12/25/16 at 09:00 Hydralazine HCl (Apresoline) 10 mg Q4H PRN IV SBP > 160; Start 12/25/16 at 06: 00 Fenofibrate (Tricor) 48 mg DAILY PO Last administered on 12/26/16 09:42; Admin Dose 48 MG; Start 12/25/16 at 12:00 Atorvastatin Calcium (Lipitor) 10 mg HS PO Last administered on 12/26/16 20: 51; Admin Dose 10 MG; Start 12/25/16 at 21:00 Carvedilol (Coreg) 6.25 mg BID PO Last administered on 12/26/16 20:51; Admin Dose 6.25 MG; Start 12/25/16 at 21:00 Lisinopril 5 mg 5 mg DAILY PO ; Start 12/27/16 at 09:00 Sodium Chloride (NS) 1,000 ml @ 75 mls/hr [id number] IV Last administered on 00:03; Admin Dose 75 MLS/HR; Start 12/27/16 at 00:00 Morphine Sulfate (morphine) 2 mg Q2H PRN IV FOR NON CARDIAC PAIN (4-10); Start 12/27/16 at 08:30 Ondansetron HCl (Zofran Inj) 4 mg Q4H PRN IV NAUSEA AND/OR VOMITING; Start at 08:30 QASIM AUSTIN Dec 27, 2016 10:38
--- NOTE | 2016-12-27 16:50 | CONS ---
Date/Time of Note Date/Time of Note DATE: 12/27/16 TIME: 16:47 Assessment/Plan Assessment/Plan Chief Complaint/Hosp Course Assessment: Chest pain - ruled out for myocardial infarction Coronary artery disease - only small vessel disease on coronary angiography, medical management Cardiomyopathy, LVEF 45-50% - possibly hypertensive Accelerated hypertension - blood pressures now improved Dyslipidemia Recommendations: -echocardiogram showed LVEF 45-50% with mild inferolateral hypokinesis, mild LVH , grade 2 diastolic dysfunction -continue carvedilol 6.25mg BID and lisinopril 5mg daily, up titrate as tolerated -continue aspirin 81mg daily -continue atorvastatin 10mg and fenofibrate 48mg daily -stable for discharge from cardiac standpoint Problems: Consultation Date/Type/Reason Admit Date/Time Dec 24, 2016 at 22:18 Type of Consultation: Cardiology 24 HR Interval Summary Free Text/Dictation Coronary angiography today showed only small vessel disease, no indication for PCI. Doing well post-procedure. Right radial artery access site intact. Denies chest pain. Detailed Summary Additional Comments 14 point review of systems without changes. Exam/Review of Systems Vital Signs Vitals Vital Signs Date Time Temp Pulse Resp B/P Pulse Ox O2 Delivery O2 Flow Rate FiO2 12/27/16 16:22 72 12/27/16 15:39 98.7 17 134/86 98 12/27/16 10:46 Room Air Intake and Output 12/26/16 12/26/16 12/27/16 15:00 23:00 07:00 Intake Total 1200 ml 120 ml Balance 1200 ml 120 ml Exam Constitutional: alert, well developed Psych: nl mood/affect, no complaints Head: atraumatic, normocephalic Eyes: nl conjunctiva, nl lids ENMT: nl external ears & nose, nl nasal mucosa & septum Neck: non-tender, supple, No jvd Respiratory: clear to auscultation, normal air movement Cardiovascular: regular rate and rhythm Gastrointestinal: non-tender, soft Musculoskeletal: nl extremities to inspection Extremities: No clubbing, No cyanosis, No edema Neurological: nl mental status, nl speech Skin: nl turgor Results Result Diagram: 12/27/16 0713 12/27/16 0713 Results 24 hrs Laboratory Tests Test 12/27/16 07:13 White Blood Count 6.8 Red Blood Count 4.64 L Hemoglobin 12.8 L Hematocrit 39.3 L Mean Corpuscular Volume 84.7 Mean Corpuscular Hemoglobin 27.6 L Mean Corpuscular Hemoglobin Concent 32.6 Red Cell Distribution Width 15.1 H Platelet Count 142 Mean Platelet Volume 10.4 Neutrophils % 59.5 Lymphocytes % 31.3 Monocytes % 6.1 Eosinophils % 2.4 Basophils % 0.4 Nucleated Red Blood Cells % 0.0 Neutrophils # 4.0 Lymphocytes # 2.1 Monocytes # 0.4 Eosinophils # 0.2 Basophils # 0.0 Nucleated Red Blood Cells # 0.0 Sodium Level 144 Potassium Level 3.8 Chloride Level 111 H Carbon Dioxide Level 30 Anion Gap 7 L Blood Urea Nitrogen 17 Creatinine 0.77 Glucose Level 96 Calcium Level 8.4 Medications Medications Current Medications Aspirin (Aspirin) 81 mg DAILY PO Last administered on 12/27/16 11:54; Admin Dose 81 MG; Start 12/25/16 at 09:00 Nitroglycerin (Nitroglycerin (Sl Tab) 0.4 Mg) 1 tab Q5M PRN SL CHEST PAIN; Start 12/24/16 at 23:00 Acetaminophen (Tylenol Tab) 650 mg Q6H PRN PO PAIN LEVEL 1-3 OR FEVER; Start 12/24/16 at 23:00 Enoxaparin Sodium (Lovenox) 40 mg DAILY SC Last administered on 12/27/16 11: 55; Admin Dose 40 MG; Start 12/25/16 at 09:00 Hydralazine HCl (Apresoline) 10 mg Q4H PRN IV SBP > 160; Start 12/25/16 at 06: 00 Fenofibrate (Tricor) 48 mg DAILY PO Last administered on 12/27/16 11:54; Admin Dose 48 MG; Start 12/25/16 at 12:00 Atorvastatin Calcium (Lipitor) 10 mg HS PO Last administered on 12/26/16 20: 51; Admin Dose 10 MG; Start 12/25/16 at 21:00 Carvedilol (Coreg) 6.25 mg BID PO Last administered on 12/27/16 11:56; Admin Dose 6.25 MG; Start 12/25/16 at 21:00 Lisinopril 5 mg 5 mg DAILY PO Last administered on 12/27/16 11:56; Admin Dose 5 MG; Start 12/27/16 at 09:00 Sodium Chloride (NS) 1,000 ml @ 75 mls/hr [id number] IV Last administered on t 11:57; Admin Dose 75 MLS/HR; Start 12/27/16 at 00:00 Morphine Sulfate (morphine) 2 mg Q2H PRN IV FOR NON CARDIAC PAIN (4-10); Start 12/27/16 at 08:30 Ondansetron HCl (Zofran Inj) 4 mg Q4H PRN IV NAUSEA AND/OR VOMITING; Start at 08:30 MAXIMO PARK MD Dec 27, 2016 16:50
[2016-12-27] MEDS: ATORVASTATIN 10 MG TAB PO SCH (20:46)
[2016-12-28 00:22] VITALS: PULSE 69
[2016-12-28 04:16] VITALS: PULSE 66
[2016-12-28 04:25] VITALS: BP 147/84; RESP 20
[2016-12-28 07:43] VITALS: BP 138/79; RESP 19
[2016-12-28 08:27] LABS: BASOPHILS % 0.3 % (0.0-2.0); EOSINOPHILS # 0.1 10^3/ul (0.0-0.5); EOSINOPHILS % 1.9 % (0.0-7.0); HEMATOCRIT 39.7 % (42.0-52.0); HEMOGLOBIN 12.4 g/dl (14.0-18.0); LYMPHOCYTES % 28.3 % (15.0-51.0); MEAN CORPUSCULAR HEMOGLOBIN 26.4 pg (29.0-33.0); MEAN CORPUSCULAR HGB CONC 31.2 g/dl (32.0-37.0); MEAN CORPUSCULAR VOLUME 84.6 fl (82.0-101.0); MONOCYTE # 0.5 10^3/ul (0.3-0.9); MONOCYTES % 6.7 % (0.0-11.0); NEUTROPHIL # 4.5 10^3/ul (1.6-7.5); NEUTROPHILS % 62.7 % (39.0-77.0); PLATELET COUNT 146 10^3/UL (140-415); RED BLOOD COUNT 4.69 10^6/ul (4.70-6.10); RED CELL DISTRIBUTION WIDTH 15.3 % (11.5-14.5); WHITE BLOOD COUNT 7.2 10^3/ul (4.8-10.8)
[2016-12-28 08:49] LABS: CALCIUM 8.6 mg/dl (8.4-10.2); CREATININE 0.82 mg/dl (0.61-1.24)
[2016-12-28 08:56] VITALS: PULSE 83
[2016-12-28] MEDS: FENOFIBRATE 48 MG TAB PO SCH (09:08)
[2016-12-28] MEDS: ASPIRIN 81 MG TAB PO SCH (09:08)
[2016-12-28] MEDS: LISINOPRIL 5 MG TAB PO SCH (09:10)
[2016-12-28] MEDS: ENOXAPARIN 40 MG/0.4 ML SYG SC SCH (09:12)
--- NOTE | 2016-12-28 10:25 | PDOCDIS ---
Discharge Instructions CONDITION Patient Condition: Stable HOME CARE INSTRUCTIONS: Special Diet: Cardiac diet ACTIVITY: Activity Restrictions: Slowly Increase Activity FOLLOW UP/APPOINTMENTS Follow-up Plan Please take your medications as prescribed. Please follow-up with your regular doctor in the clinic in the next 1 week. QASIM AUSTIN Dec 28, 2016 10:24
[2016-12-28] MEDS ORDERED: ATOR10TA65 PO (10:26)
[2016-12-28] MEDS ORDERED: ASPI81TA3 PO (10:26)
[2016-12-28] MEDS ORDERED: LISI-313 PO (10:26)
[2016-12-28] MEDS ORDERED: FENO48TA4 PO (10:26)
[2016-12-28] MEDS ORDERED: CARV6.2579 PO (10:26)
[2016-12-28 12:26] VITALS: PULSE 64
--- NOTE | 2016-12-28 13:11 | DS ---
DATE OF ADMISSION: 12/24/2016 DATE OF DISCHARGE: 12/28/2016 HOSPITAL COURSE: This is a 56-year-old male, originally admitted on December 25, 2016, being discharged home on December 28, 2016. The patient came in with chest pain symptoms. He ruled out for acute coronary syndrome as his troponins were negative x3. He had an echocardiogram performed that showed ejection fraction of 45 percent to 50 percent. There was some mildly reduced systolic function, mildly concentric left ventricular hypertrophy, grade 2 diastolic dysfunction. There was some aortic valve sclerosis but without stenosis and there was some [id number] aortic valve regurgitation seen. The patient was seen by cardiology team. He underwent cardiac catheterization. He was found with small- vessel disease, to be treated medically. There was no angioplasty or stents placed. He was also found with accelerated hypertension and was placed on a new blood pressure medication, which brought his blood pressure down to normal levels. He was also found with high cholesterol, started on statin and fenofibrate medications as well. Over the course of hospital stay, his chest pain symptoms improved. He was able to ambulate and tolerate a p.o. diet. His vital signs were stable on day of discharge. After getting clearance from cardiology team, he will be discharged home today in improved condition. DISCHARGE MEDICATIONS: He will be sent with: 1. Aspirin 81 mg daily. 2. Atorvastatin 10 mg nightly. 3. Coreg 6.25 mg b.i.d. 4. Fenofibrate 40 mg daily. 5. Lisinopril 5 mg daily. FOLLOWUP: Continue to follow with primary care doctor and cardiology doctor in the clinic in the next 1-2 weeks. DISCHARGE INSTRUCTIONS: He was also counseled on smoking cessation as he is an active smoker. FINAL DIAGNOSES: 1. Chest pain. Ruled out for acute coronary syndrome. 2. Coronary artery disease, status post left heart catheterization, now on medical management. No angioplasty or stents placed. 3. Essential hypertension and hypertensive urgency, now resolved. 4. Hypokalemia, resolved. 5. Left arm numbness, ruled out for acute stroke. 6. High cholesterol. 7. Mild cardiomyopathy with ejection fraction 45 percent to 50 percent, now on cardiac medications. TIME SPENT ON DISCHARGE: 45 minutes. Dictated By: Pollo Meredith MD /[email or web address]/mikel /Document#: [id number]
== END 2016-12-28 11:30 | disposition home or self-care (01) | DRG 287 ==
LOC: E/R 20:47 → TEL 22:18
PROVIDERS: ADMIT Internal Medicine; ATTEND Internal Medicine
PROC: 4A023N7 Measurement of Cardiac Sampling and Pressure, Left Heart, Percutaneous Approach (ICD-10-PCS; principal; 2016-12-27)
PROC: B211YZZ Fluoroscopy of Multiple Coronary Arteries using Other Contrast (ICD-10-PCS; 2016-12-27)
PROC: B215YZZ Fluoroscopy of Left Heart using Other Contrast (ICD-10-PCS; 2016-12-27)
DX: I25.110 Atherosclerotic heart disease of native coronary artery with unstable angina pectoris (principal); I42.9 Cardiomyopathy, unspecified; I16.0 Hypertensive urgency; E78.5 Hyperlipidemia, unspecified; E87.6 Hypokalemia; R07.9 Chest pain, unspecified; R20.0 Anesthesia of skin; F17.210 Nicotine dependence, cigarettes, uncomplicated; Z90.49 Acquired absence of other specified parts of digestive tract
CPT/HCPCS: 36415; 70450; 71010; 80048; 80053; 80061; 82550; 82553; 83036; 83690; 83735; 84443; 84484; 85025; 90686; 93005; 93306; 93458; 96374; 96375; 96376; C1887; J1644; J1650; J2250; J2270; J2405; J3010; J3480; J7030; Q9967